=== PATIENT | female | born 1990 | race Caucasian/White ===

== ENCOUNTER 2018-11-07 16:39 | Emergency (ER) | payer OTHER ==
[~2018-11-07] VITALS: Ht 154.9 cm; Wt 67.6 kg
[~2018-11-07 16:39] MED LIST: DIPHENHIST50 MG PO; PREDNISONE 20 M20 MG PO
[2018-11-07] MEDS ORDERED: ADVAIR HFA 230M12 GM INH (17:04)
[2018-11-07] MEDS ORDERED: VENTOLIN HFA 1818 GM INH (17:04)
[2018-11-07 17:33] LABS: ABSOLUTE NEUTROPHILS 5.5 thou/uL (1.4-8.2); BASOPHILS 0.8 % (0.0-2.0); EOSINOPHILS 8.4 % (0.0-3.0); HEMATOCRIT 41.9 % (37.0-47.0); LYMPHOCYTES 22.7 % (24.0-44.0); MCH 27.9 pg (26.0-34.0); MCHC 33.5 g/dL (28.0-37.0); MCV 83.3 fL (80.0-100.0); MONOCYTES 6.3 % (1.0-8.0); PLATELET COUNT 194 thou/uL (150-400); POLYS 61.8 % (36.0-66.0); RBC 5.03 mil/uL (4.20-5.00); RDW 14.9 % (10.5-14.5); WBC 8.9 thou/uL (4.0-11.0)
[2018-11-07 17:36] LABS: URINE BILIRUBIN NEGATIVE (Negative); URINE BLOOD 3+ (Negative); URINE CLARITY CLEAR; URINE COLOR YELLOW; URINE GLUCOSE-RANDOM* NEGATIVE (Negative); URINE KETONES 2+ (Negative); URINE LEUKOCYTES-REFLEX NEGATIVE (Negative); URINE NITRITE-REFLEX NEGATIVE (Negative); URINE PROTEIN (DIPSTICK) NEGATIVE (Negative); URINE SPECIFIC GRAVITY >= 1.030 (1.005-1.035); URINE UROBILINOGEN 0.2 E.U./dl (0.2-1.0)
[2018-11-07 17:38] LABS: CALCIUM 9.4 mg/dL (8.5-10.1); POTASSIUM 3.9 mmol/L (3.5-5.1)
[2018-11-07 17:44] LABS: BACTERIA-REFLEX None Seen /HPF (None Seen); CASTS None Seen /LPF (None Seen); CRYSTALS None Seen /LPF (None Seen); SQUAMOUS 0-3 Few /LPF (0-3); URINE RBC >20 Many /HPF (0-2); URINE WBC-REFLEX 0-5 Rare /HPF (0-5)
[2018-11-07 17:44] LABS: ALBUMIN 4.2 g/dL (3.4-5.0); TOTAL BILIRUBIN 0.3 mg/dL (<0.1-1.0); TOTAL PROTEIN 7.9 g/dL (6.4-8.2)
[2018-11-07 19:11] VITALS: BP 116/58
== END 2018-11-07 19:12 | disposition home or self-care (01) ==
LOC: ER 16:39
PROVIDERS: Nurse Practitioner Family
DX: O72.1 Other immediate postpartum hemorrhage (principal)

== ENCOUNTER 2019-08-09 23:18 | Emergency (ER) | payer OTHER ==
[~2019-08-09] VITALS: Ht 154.9 cm; Wt 61.2 kg
[~2019-08-09 23:18] MED LIST changes: +ADVAIR HFA 230M12 GM INH; +VENTOLIN HFA 1818 GM INH
[2019-08-10] MEDS ORDERED: NORCO 5-325 TA1 EAC1 PO (01:57)
[2019-08-10 02:02] VITALS: BP 103/64
== END 2019-08-10 02:08 | disposition home or self-care (01) ==
LOC: ER 23:18
DX: S02.2XXA Fracture of nasal bones, initial encounter for closed fracture (principal); Y04.0XXA Assault by unarmed brawl or fight, initial encounter; Y93.89 Activity, other specified; Y92.89 Other specified places as the place of occurrence of the external cause; Y99.8 Other external cause status